=== PATIENT | male | born 1985 ===

== ENCOUNTER 2018-09-05 05:23 | Emergency (ER) | payer OTHER ==
[2018-09-05] MEDS ORDERED: Naproxen 500 MG TAB PO ONE ×2 (05:46→05:52)
--- NOTE | 2018-09-05 05:50 | ED PDOC ---
HPI: CCC, URI, Sore Throat Chief Complaint (Provider): difficulty breathing History Per: Patient, [employer] ([id number]) History/Exam Limitations: no limitations Onset/Duration Of Symptoms: Hrs Current Symptoms Are (Timing): Better Additional Complaint(s): 33 y/o male brought in by EMS for evaluation of difficulty breathing x 1 hour. Patient states he was feeling fine when he went to bed last night, states he woke up this morning and had trouble breathing because phlegm was "stuck" in his throat. Patient states he then coughed up white and blood-tinged phlegm. Patient states he was able to breathe after that. Patient states upon arriving to ED he felt symptoms again so he stuck his fingers in his throat to try and remove phlegm and he was again able to cough up phlegm. Patient reports midsternal chest pain x 3 days. Denies fever, ear pain, nasal congestion/drainage, sore throat, shortness of breath, palpitations, nausea/vomiting, abdominal pain, changes in bowel movements. <Mini Clinton - Last Filed: 09/05/18 05:47> <George Stokes - Last Filed: 09/05/18 06:41> Time Seen by Provider: 09/05/18 05:36 Chief Complaint (Nursing): ENT Problem Past Medical History Reviewed: Historical Data, Nursing Documentation, Vital Signs Vital Signs: Last Vital Signs Temp 97.8 F 09/05/18 05:34 Pulse 90 09/05/18 05:34 Resp 18 09/05/18 05:34 BP 141/89 09/05/18 05:34 Pulse Ox 99 09/05/18 05:34 - Medical History PMH: No Chronic Diseases - Surgical History Surgical History: Cholecystectomy - Family History Family History: States: No Known Family Hx - Living Arrangements Living Arrangements: With Family <Mini Clinton - Last Filed: 09/05/18 05:47> Vital Signs: Last Vital Signs Temp 97.8 F 09/05/18 05:34 Pulse 90 09/05/18 05:34 Resp 18 09/05/18 05:34 BP 141/89 09/05/18 05:34 Pulse Ox 99 09/05/18 06:16 <George Stokes - Last Filed: 09/05/18 06:41> - Home Medications Home Medications: Ambulatory Orders Medication Instructions Recorded Guaifenesin [Mucinex] 1 - 2 tab PO Q12 PRN #20 09/05/18 Naproxen [Naprosyn] 500 mg PO BID #30 tablet 09/05/18 - Allergies Allergies/Adverse Reactions: Allergies Allergy/AdvReac Type Severity Reaction Status Date / Time No Known Allergies Allergy Verified 09/05/18 05:36 Review of Systems ROS Statement: Except As Marked, All Systems Reviewed And Found Negative ENT: Positive for: Other (phlegm in throat) Cardiovascular: Positive for: Chest Pain <Mini Clinton - Last Filed: 09/05/18 05:47> Physical Exam - Reviewed Nursing Documentation Reviewed: Yes Vital Signs Reviewed: Yes - Physical Exam Appears: Positive for: Well, Non-toxic, No Acute Distress Head Exam: Positive for: ATRAUMATIC, NORMAL INSPECTION, NORMOCEPHALIC Skin: Positive for: Normal Color Eye Exam: Positive for: Normal appearance ENT: Positive for: Normal ENT Inspection Cardiovascular/Chest: Positive for: Regular Rate, Rhythm. Negative for: Chest Non Tender (tender to palpate midsternum) Respiratory: Positive for: Normal Breath Sounds Gastrointestinal/Abdominal: Positive for: Normal Exam Back: Positive for: Normal Inspection Extremity: Positive for: Normal ROM Neurological/Psych: Positive for: Awake, Alert, Oriented (x3) <Mini Clinton - Last Filed: 09/05/18 05:47> - ECG ECG: Positive for: Viewed By Me (reviewed by ED attending) ECG Rhythm: Positive for: Sinus Rhythm O2 Sat by Pulse Oximetry: 99 Pulse Ox Interpretation: Normal - Radiology X-Ray: Viewed By Me X-Ray Interpretation: No Acute Disease - Progress ED Course And Treament: -ekg -cxr -ibuprofen PO <Mini Clinton - Last Filed: 09/05/18 05:47> Medical Decision Making Medical Decision Makin Patient evaluated at bedside, states he's feeling better Awaiting strep result [address] Gutierrez pending rapid strep test <George Stokes - Last Filed: 09/05/18 06:41> Disposition - Patient ED Disposition Is Patient to be Admitted: No Counseled Patient/Family Regarding: Studies Performed, Diagnosis, Need For Fo llowup, Rx Given - Disposition Disposition: Routine/Home Disposition Time: 06:08 Patient Signed Over To: George Stokes Handoff Comments: pending rapid strep <Mini Clinton - Last Filed: 09/05/18 05:47> - Patient ED Disposition Is Patient to be Admitted: Transfer of Care - Disposition Disposition: Transfer of Care Disposition Time: 07:00 Patient Signed Over To: Gurdeep Gutierrez <George Stokes - Last Filed: 09/05/18 06:41> - Clinical Impression Clinical Impression: Atypical chest pain, Phlegm in throat - Disposition Referrals: [facility] [Outside] Condition: IMPROVED Prescriptions: Guaifenesin [Mucinex] 1 - 2 tab PO Q12 PRN #20 PRN Reason: phlegm in throat Naproxen [Naprosyn] 500 mg PO BID #30 tablet Instructions: Chest Pain That Is Not Caused by the Heart (DC) Print Language: [place]
[2018-09-05 07:07] VITALS: BP 131/82; PULSE 84; RESP 17; TEMP 98; O2SAT 100
--- NOTE | 2018-09-05 07:58 | RAD ---
Date of service: 09/05/2018 HISTORY: chest pain COMPARISON: No prior. TECHNIQUE: Chest PA and lateral views FINDINGS: LUNGS: No acute pulmonary disease. PLEURA: No significant pleural effusion identified. No pneumothorax apparent. CARDIOVASCULAR: No aortic atherosclerotic calcification present. Normal cardiac size. No pulmonary vascular congestion. OSSEOUS STRUCTURES: No significant abnormalities. VISUALIZED UPPER ABDOMEN: Surgical clips are noted at the right upper quadrant abdomen. Mild right hemidiaphragm elevation. OTHER FINDINGS: None. IMPRESSION: No acute consolidation, pleural effusion or pneumothorax. No pulmonary vascular congestion or cardiomegaly. Mild right hemidiaphragm elevation.
--- NOTE | 2018-09-05 09:36 | CARD ---
APPROVED REPORT Date of service: 09/05/2018 EKG Measurement Heart [id number] <Conclusion> Normal sinus rhythm Incomplete right bundle branch block Borderline ECG
== END 2018-09-05 07:03 | disposition home or self-care (01) ==
LOC: H.ER 05:23
DX: R07.89 Other chest pain (principal)